=== PATIENT | male | born 1985 | race Caucasian/White ===

== ENCOUNTER 2020-12-23 23:34 | Emergency (ER) | payer BC ==
[2020-12-23 23:44] VITALS: BP 103/62; PULSE 61; TEMP 97.6; BMI 32.5
== END 2020-12-24 00:20 | disposition home or self-care (01) ==
LOC: JER 23:34
DX: Z11.52 Encounter for screening for COVID-19 (principal)
CPT/HCPCS: 99283-25; C9803; U0003; U0005